=== PATIENT | male | born 1965 | race Caucasian/White ===

== ENCOUNTER → 2018-03-12 | Outpatient (CLI) | payer BC ==
[~2018-03-12] MED LIST: IOPAMIDOL 76% 100 ML INFUS BTL 100 ML ONE; METH-543 PO; NS 0.9% 25 ML BAG 25 ML ONE; OXYC500S PO; PER PO
--- NOTE | 2018-03-12 09:00 | RADIOLOGY IMAGING REPORT ---
FAC[place] [facility] [place] NAME: Marcelino Lott : 1965 MR: [id number] V: [id number] EXAM DATE: ORDERING PHYSICIAN: ALEKSEY NEWMAN TECHNOLOGIST: Location: [facility] Patient: Marcelino Lott : 1965 Visit/Account:[id number] Date of Sevice: 03/12/2018 ABDOMEN/PELVIS W/WO CONTRAST HISTORY: Left renal mass on prior CT TECHNIQUE: Axial images acquired through the abdomen/pelvis both with and without IV contrast.. Jasbir nal and sagittal reformatting also performed. Dose Lowering Technique One of the following dose optimization techniques was utilized in the performance of this exam: Autom ated exposure control; adjustment of the mA and/or kV according to the patient's size; or use of an i terative reconstruction technique. Specific details can be referenced in the facility's radiology C T exam operational policy. CONTRAST: 95 mL [id number]-[id number] COMPARISON: March 14, 2017 FINDINGS: Visualized lung bases: Negative. Hepatobiliary: Negative. Spleen: Negative. Adrenals: Negative. Pancreas: Negative. Kidneys ureters and bladder: There is a 5 mm round hypoattenuating lesion posterior medial right kidn ey that is too small to characterize by CT although appears unchanged in size when compared the prior study. There is a 7 mm exophytic mass projecting from the lateral upper pole of the left kidney arelis ears unchanged in size when compared to the prior CT although again is too small to accurately charac terize by CT Hounsfield units. There is no demonstration of urolithiasis hydronephrosis or hydroureter. There is mild trabeculation of the bladder wall Genitalia: Prostate gland is mildly enlarged and impinges upon the floor the urinary bladder GI: There Is diverticulosis left-sided colon although no CT evidence of acute diverticulitis Vessels/spaces/nodes: Very mild vascular calcifications in the abdominal aorta. No pathologic-appea ring adenopathy Bones/soft tissues: Previously noted nondisplaced fracture to the right transverse process of L2 has healed in the interim.. Small anterior osteophytes are again seen at T9-T10 T12-L1 and L4 A soft tissue contusion previously described along the right flank has resolved. Additional findings: None pertinent. IMPRESSION: The nondisplaced fracture through the right transverse process of L2 has healed in the interim Soft tissue contusion previously noted along the right flank has resolved 7 mm exophytic mass projecting from the lateral upper pole the left kidney appears unchanged in size. This is however too small to characterize by CT Hounsfield units 5 mm round hypodensity medial aspect of the right kidney also unchanged in size and also too small to characterize. Depending upon the degree of clinical concern a follow-up CT or MR in 12 months to do cument stability may be helpful Prostate gland is mildly enlarged impinging upon the floor the bladder. There is mild bladder trabec ulation Mild diverticulosis left-sided colon although no CT evidence of acute diverticulitis Report Dictated By: Zoraida Bowen MD at 03/12/2018 8:36 AM Report E-Signed By: Zoraida Bowen MD at 03/12/2018 8:57 AM WSN:[email or web address]
== END ==
LOC: CT 02:26
PROVIDERS: ATTEND Family Medicine
DX: R93.49 Abnormal radiologic findings on diagnostic imaging of other urinary organs (principal); N40.1 Benign prostatic hyperplasia with lower urinary tract symptoms; K57.30 Diverticulosis of large intestine without perforation or abscess without bleeding
CPT/HCPCS: 74178; Q9967